=== PATIENT | female | born 1985 ===

== ENCOUNTER → 2017-04-11 | Emergency (ER) | payer OTHER ==
[~2017-04-11] VITALS: Ht 162.6 cm; Wt 63.5 kg
[~2017-04-11] MED LIST: ACIDOPHILUS1 EAC3 PO; LEVSIN/SL0.125 MG PO; ZANTAC150 MG PO
== END | disposition home or self-care (01) ==
LOC: ER 07:29 → EMR PED 07:29 → ER 07:43
DX: K52.9 Noninfective gastroenteritis and colitis, unspecified (principal)